=== PATIENT | male | born 1985 | race Caucasian/White ===

== ENCOUNTER 2016-12-17 16:42 | Emergency (ER) | payer MEDICAID ==
[~2016-12-17] VITALS: Ht 167.6 cm; Wt 109.0 kg
[~2016-12-17 16:42] MED LIST: Z.0.NO CURRENT MEDS
[2016-12-17 16:51] VITALS: BP 169/99; PULSE 107; RESP 18; TEMP 99; O2SAT 93
[2016-12-17] MEDS ORDERED: SODIUM CHLOR 0.9% 1000 ML INJ 1,000 ML IV ONE (17:15)
[2016-12-17] MEDS ORDERED: SODIUM CHLORIDE 0.9% FLUSH 10 ML FLUSH IV FLUSH PRN (17:15)
[2016-12-17 17:23] LABS: AUTOMATED NEUTROPHIL # 4.9 TH/MM3 (1.8-7.7); BASOPHIL % 0.5 % (0.0-2.0); EOSINOPHIL # 0.3 TH/MM3 (0-0.4); EOSINOPHIL % 4.7 % (0.0-4.0); HEMATOCRIT 47.9 % (39.0-51.0); HEMO FLAGS DIFF FINAL; LYMPH % 21.2 % (9.0-44.0); LYMPHOCYTE # 1.5 TH/MM3 (1.0-4.8); MEAN CELL VOLUME 83.9 FL (80.0-100.0); MEAN CORPUSCULAR HEMOGLOBIN 29.1 PG (27.0-34.0); MEAN CORPUSCULAR HGB CONC 34.7 % (32.0-36.0); MONO % 7.1 % (0.0-8.0); NEUT % 66.5 % (16.0-70.0); PLATELET COUNT 227 TH/MM3 (150-450); RED BLOOD COUNT 5.71 MIL/MM3 (4.50-5.90); RED CELL DISTRIBUTION WIDTH 12.8 % (11.6-17.2); WHITE BLOOD COUNT 7.2 TH/MM3 (4.0-11.0)
--- NOTE | 2016-12-17 17:30 | RADRPT ---
EXAM DATE/TIME: 12/17/2016 17:19 [facility] COMPARISON: No previous studies available for comparison. INDICATIONS : Cough for 4 days. MEDICAL HISTORY : None. SURGICAL HISTORY : None. ENCOUNTER: Initial ACUITY: 4 - 6 days PAIN SCORE: 2/10 LOCATION: Bilateral lower chest FINDINGS: Portable AP view of the chest demonstrates a normal-sized cardiac silhouette. No effusion, consolidat ion, or pneumothorax is visualized. The bones and soft tissues demonstrate no acute abnormality. CONCLUSION: No acute cardiopulmonary abnormality is identified. Neil Pandya MD on December 17, 2016 at 17:28 Board Certified Radiologist. This report was verified electronically.
[2016-12-17 17:32] LABS: CHLORIDE 106 MEQ/L (98-107); POTASSIUM 3.8 MEQ/L (3.5-5.1); SODIUM (NA) 140 MEQ/L (136-145)
[2016-12-17 17:37] LABS: ANION GAP 6 MEQ/L (5-15); BICARBONATE 28.3 MEQ/L (21.0-32.0); BLOOD UREA NITROGEN 10 MG/DL (7-18)
--- NOTE | 2016-12-17 17:39 | PD ---
HPI Chief Complaint: Abdominal Pain Time Seen by Provider: 16:57 Travel History International Travel<30 days: No Contact w/Intl Traveler<30days: No Traveled to known affect area: No History of Present Illness HPI This is a 31-year-old male who presents to the emergency department with 4 days of productive cough with green sputum, fevers, chills, several episodes of vomiting and abdominal pain. He describes his abdominal pain is severe, worse in the right upper quadrant, worse with deep breaths and worse with coughing. He denies any diarrhea. He's never had pain like this before. He says he's had pneumonia twice in the past. His was recently diagnosed with strep pharyngitis and their children in the house that are sick. PFSH Past Medical History Diminished Hearing: No Respiratory: Yes (BRONCHITIS) Immunizations Current: Yes Pneumonia: Yes Tetanus Vaccination: < 5 Years Influenza Vaccination: No Past Surgical History Surgical History: No Previous Surgery Social History Alcohol Use: No Tobacco Use: Yes (1 PPD) Substance Use: No Allergies-Medications (Allergen,Severity, Reaction): Coded Allergies: No Known Allergies (Verified Adverse Reaction, Unknown, 12/17/16) Reported Meds & Prescriptions Reported Meds & Active Scripts Active No Active Prescriptions or Reported Medications Review of Systems Except as stated in HPI: all other systems reviewed are Neg Physical Exam Narrative GENERAL: Uncomfortable appearing. SKIN: Diaphoretic. HEAD: Atraumatic. Normocephalic. EYES: Pupils equal and round. No injection or drainage. ENT: Moist mucous membranes. No posterior pharyngeal erythema or exudates. NECK: Trachea midline. No tender lymphadenopathy. CARDIOVASCULAR: Regular rate and rhythm. No murmur appreciated. RESPIRATORY: Clear to auscultation. Breath sounds equal bilaterally. GASTROINTESTINAL: Abdomen soft, tender to palpation in the right upper quadrant and epigastrium with no rebound or guarding. MUSCULOSKELETAL: No obvious deformities. NEUROLOGICAL: Awake and alert. No obvious cranial nerve deficits. Moving all extremities. PSYCHIATRIC: Appropriate mood and affect; insight and judgment normal. Data Data Last Documented VS Vital Signs Date Time Temp Pulse Resp B/P (MAP) Pulse Ox O2 Delivery O2 Flow Rate FiO2 12/17/16 18:05 97.9 87 17 171/92 (118) 96 Room Air Orders Orders Complete Blood Count With Diff (12/17/16 17:07) Comprehensive Metabolic Panel (12/17/16 17:07) Lipase (12/17/16 17:07) Urinalysis - C+S If Indicated (12/17/16 17:07) Ct Abd/Pel W Iv Contrast(Rout) (12/17/16 17:07) Iv Access Insert/Monitor (12/17/16 17:07) Ecg Monitoring (12/17/16 17:07) Oximetry (12/17/16 17:07) Sodium Chloride 0.9% Flush (Ns Flush) (12/17/16 17:15) Chest, Single Ap (12/17/16 ) Sodium Chlor 0.9% 1000 Ml Inj (Ns 1000 M (12/17/16 17:15) Influenzae A/B Antigen (12/17/16 17:08) Methylprednisolone So Succ Inj (Solumedr (12/17/16 17:45) Albuterol-Ipratropium Neb (Duoneb Neb) (12/17/16 17:45) Iohexol 350 Inj (Omnipaque 350 Inj) (12/17/16 18:27) Labs Laboratory Tests Test 12/17/16 17:15 12/17/16 18:01 White Blood Count 7.2 TH/MM3 Red Blood Count 5.71 MIL/MM3 Hemoglobin 16.6 GM/DL Hematocrit 47.9 % Mean Corpuscular Volume 83.9 FL Mean Corpuscular Hemoglobin 29.1 PG Mean Corpuscular Hemoglobin Concent 34.7 % Red Cell Distribution Width 12.8 % Platelet Count 227 TH/MM3 Mean Platelet Volume 7.8 FL Neutrophils (%) (Auto) 66.5 % Lymphocytes (%) (Auto) 21.2 % Monocytes (%) (Auto) 7.1 % Eosinophils (%) (Auto) 4.7 % Basophils (%) (Auto) 0.5 % Neutrophils # (Auto) 4.9 TH/MM3 Lymphocytes # (Auto) 1.5 TH/MM3 Monocytes # (Auto) 0.5 TH/MM3 Eosinophils # (Auto) 0.3 TH/MM3 Basophils # (Auto) 0.0 TH/MM3 CBC Comment DIFF FINAL Differential Comment Blood Urea Nitrogen 10 MG/DL Creatinine 0.75 MG/DL Random Glucose 113 MG/DL Total Protein 7.6 GM/DL Albumin 3.7 GM/DL Calcium Level 8.8 MG/DL Alkaline Phosphatase 92 U/L Aspartate Amino Transf (AST/SGOT) 137 U/L Alanine Aminotransferase (ALT/SGPT) 382 U/L Total Bilirubin 0.5 MG/DL Sodium Level 140 MEQ/L Potassium Level 3.8 MEQ/L Chloride Level 106 MEQ/L Carbon Dioxide Level 28.3 MEQ/L Anion Gap 6 MEQ/L Estimat Glomerular Filtration Rate 122 ML/MIN Lipase 179 U/L Urine Color YELLOW Urine Turbidity CLEAR Urine pH 7.0 Urine Specific [place] 1.025 Urine Protein NEG mg/dL Urine Glucose (UA) NEG mg/dL Urine Ketones NEG mg/dL Urine Occult Blood NEG Urine Nitrite NEG Urine Bilirubin NEG Urine Leukocyte Esterase NEG Urine WBC 0-2 /hpf Urine Squamous Epithelial Cells 0-5 /hpf Microscopic Urinalysis Comment CULT NOT INDICATED MDM Medical Decision Making Medical Screen Exam Complete: Yes Emergency Medical Condition: Yes Interpretation(s) Afebrile, tachycardic, hypertensive No leukocytosis Mild transaminitis Urinalysis is negative for infection Chest x-ray: No acute process CT abdomen and pelvis: No explanation for pain. Splenomegaly and pulmonary nodules which I discussed with the patient. Differential Diagnosis Bronchitis, pneumonia, influenza, pleural effusion, cholelithiasis, cholecystitis, pancreatitis Narrative Course This is a 31-year-old male who presents to the emergency department having cough , shortness of breath and pleuritic abdominal pain. He is tachycardic on arrival and diaphoretic. His symptoms are consistent with a viral syndrome. He is reporting green sputum production. He was placed in a monitor and an IV was established. Labs are reassuring except for some mild transaminitis. CT abdomen and pelvis was obtained which demonstrates some incidental findings but nothing to explain his pain. I suspect this pain is pleuritic in the setting of an acute bronchitis. Patient will be discharged with albuterol, prednisone and antibiotics. Diagnosis Primary Impression: Acute bronchitis Qualified Codes: J20.9 - Acute bronchitis, unspecified Patient Instructions: General Instructions Additional Instructions: If you develop severe chest pain, shortness of breath, sweating, lightheadedness , dizziness or difficulty breathing return to the emergency department immediately. Followup with your primary care physician in 2-3 days if your symptoms are not resolved. Your provided a copy of your CT results. This should be followed by your primary care doctor. Med/Other Pt SpecificInfo: Prescription(s) given Scripts Azithromycin (Azithromycin) 250 Mg Tab 250 MG PO DIRECTED for Infection, #6 TAB 0 Refills Take 2 tabs (500 mg) on day 1 then 1 tab daily x 4 days. Prov: Ankita Stephenson MD 12/17/16 Prednisone (Prednisone) 20 Mg Tab 40 MG PO DAILY, #10 TAB 0 Refills Take 40 mg (2 tablets) daily for 5 days Prov: Ankita Stephenson MD 12/17/16 Albuterol 8.5 GM Inh (Proair Hfa 8.5 GM Inh) 90 Mcg/Act Aer 2 PUFF INH Q4-6H Y for SHORTNESS OF BREATH, #1 INHALER 0 Refills 108 mcg/actuation Prov: Ankita Stephenson MD 12/17/16 Disposition: 01 DISCHARGE HOME Condition: Stable Ankita Stephenson MD Dec 17, 2016 17:39
[2016-12-17 17:40] LABS: ALT (GPT) 382 U/L (12-78); AST (GOT) 137 U/L (15-37); GLOMERULAR FILTRATION RATE 122 ML/MIN (>89)
[2016-12-17 17:41] LABS: TOTAL BILIRUBIN ADULT 0.5 MG/DL (0.2-1.0)
[2016-12-17 17:43] LABS: ALKALINE PHOSPHATASE 92 U/L (45-117)
[2016-12-17] MEDS ORDERED: methylPREDNISolone SOD SUCC 125 MG/2 ML VIAL IV PUSH ONE (17:45)
[2016-12-17] MEDS ORDERED: RESP: ALBUTEROL 2.5 MG/IPRATROPIUM 0.5 MG NEB (SCH) NEB ONE (17:45)
[2016-12-17 18:05] VITALS: BP 171/92; PULSE 87; RESP 17; TEMP 97.9; O2SAT 96
[2016-12-17 18:12] LABS: BLOOD, URINE NEG (NEG); GLUCOSE,URINE NEG (NEG); KETONE, URINE NEG (NEG); NITRITE,URINE NEG (NEG)
[2016-12-17 18:19] LABS: URINE COLOR YELLOW (YELLW/STRAW)
[2016-12-17 18:20] LABS: COMMENT (UR) CULT NOT INDICATED; CULTURE IF INDICATED CULT NOT INDICATED; SQUAMOUS EPITHELIAL CELL URINE 0-5 /hpf (0-5); WBC, URINE 0-2 /hpf (0-5)
[2016-12-17] MEDS ORDERED: IOHEXOL 350 MG/ML 10 ML VIAL (for RAD DIAG) IVCONTRAST ONE (18:27)
--- NOTE | 2016-12-17 18:52 | RADRPT ---
EXAM DATE/TIME: 12/17/2016 18:21 [facility] COMPARISON: No previous studies available for comparison. INDICATIONS : Right lower quadrant pain. IV CONTRAST: 95 cc Omnipaque 350 (iohexol) IV ORAL CONTRAST: No oral contrast ingested. RADIATION DOSE: 21.38 CTDIvol (mGy) MEDICAL HISTORY : None SURGICAL HISTORY : None. ENCOUNTER: Initial ACUITY: 2 days PAIN SCALE: 6/10 LOCATION: Right lower quadrant TECHNIQUE: Volumetric scanning of the abdomen and pelvis was performed. Using automated exposure control and ad justment of the mA and/or kV according to patient size, radiation dose was kept as low as reasonably achievable to obtain optimal diagnostic quality images. DICOM format image data is available electro nically for review and comparison. FINDINGS: LOWER LUNGS: A total of 4 pulmonary nodules are observed within the visualized lung bases. These range in size fro m 3-5 mm. 2 are located on the right and 2 on the left. No acute infiltrate. LIVER: Homogeneously low in density without lesion. There is no dilation of the biliary tree. No calcified gallstones. SPLEEN: Splenomegaly. No lesion. Splenic vein is patent. PANCREAS: Within normal limits. KIDNEYS: Normal in size and shape. There is no mass or hydronephrosis. A 2 mm nonobstructing left renal stone . ADRENAL GLANDS: Within normal limits. VASCULAR: There is no aortic aneurysm. BOWEL/MESENTERY: The stomach, small bowel, and colon demonstrate no acute abnormality. There is no free intraperitone al air or fluid. The appendix is well-seen and normal by CT criteria. ABDOMINAL WALL: Within normal limits. RETROPERITONEUM: There is no lymphadenopathy. BLADDER: No wall thickening or mass. REPRODUCTIVE: Within normal limits. INGUINAL: There is no lymphadenopathy or hernia. MUSCULOSKELETAL: Within normal limits for patient age. CONCLUSION: 1. Splenomegaly. 2. A total of 4 pulmonary nodules involving the visualized lung bases. Current guidelines suggest a r epeat CT of the thorax in 6 months. 3. Hepatic steatosis. 4. 2 mm nonobstructing left renal stone. Jeff Milian Jr., MD on December 17, 2016 at 18:46 Board Certified Radiologist. This report was verified electronically.
[2016-12-17] MEDS ORDERED: AZIT250T3 PO (19:07)
[2016-12-17] MEDS ORDERED: ALBUAER3 INH (19:07)
[2016-12-17] MEDS ORDERED: PRED20 PO (19:07)
[2016-12-17 19:10] VITALS: BP 171/102; PULSE 88; RESP 17; O2SAT 94
[2016-12-17 19:55] VITALS: BP 177/103; PULSE 92; RESP 18; O2SAT 94
== END 2016-12-17 20:20 | disposition home or self-care (01) ==
LOC: PHED 16:42
DX: J20.9 Acute bronchitis, unspecified (principal); F17.200 Nicotine dependence, unspecified, uncomplicated
CPT/HCPCS: 71010; 74177; 80053; 81001; 83690; 85025; 87804; 94664; 96361; 96374; 99285; J2930; J7030; Q9967

== ENCOUNTER 2017-05-02 06:19 | Emergency (ER) | payer MEDICAID, OTHER ==
[~2017-05-02] VITALS: Ht 167.6 cm; Wt 111.0 kg
[~2017-05-02 06:19] MED LIST changes: +ALBUAER3 INH; +AZIT250T3 PO; +PRED20 PO; -Z.0.NO CURRENT MEDS
[2017-05-02 06:25] VITALS: BP 150/90; PULSE 90; RESP 16; TEMP 97.6; O2SAT 98
[2017-05-02] MEDS ORDERED: IBUPROFEN 800 MG TAB PO ONE (06:45)
[2017-05-02] MEDS ORDERED: CIPROFLOXACIN 500 MG TAB PO ONE (06:45)
[2017-05-02] MEDS ORDERED: TRAM50TA PO (06:48)
[2017-05-02] MEDS ORDERED: IBUP1TAB7 PO (06:48)
[2017-05-02] MEDS ORDERED: CIPR-9 PO (06:48)
--- NOTE | 2017-05-02 06:52 | PD ---
HPI Chief Complaint: Skin Problem Time Seen by Provider: 06:43 Travel History International Travel<30 days: No Contact w/Intl Traveler<30days: No Traveled to known affect area: No History of Present Illness HPI 31-year-old male presents to the emergency department for complaint of left foot pain plantar surface after stepping on a wooden board with nails. Patient states sustained 2 puncture wounds to the bottom of his left foot. Patient states he was wearing shoes at the time. Patient's tetanus status was 3 years ago. Patient is not diabetic. Patient denies other injury. Patient states injury occurred approximately 9 PM on evening. Patient states he did not take any medications. Patient reports pain associated with your cannot weight-bear on the foot. Patient denies other injury. PFSH Past Medical History Narrative Medical Bronchitis pneumonia tobacco use nursing notes for Diminished Hearing: No Respiratory: Yes (BRONCHITIS) Immunizations Current: Yes Pneumonia: Yes Tetanus Vaccination: < 5 Years ?: Not Social History Alcohol Use: No Tobacco Use: Yes Substance Use: No Allergies-Medications (Allergen,Severity, Reaction): Coded Allergies: No Known Allergies (Verified Adverse Reaction, Unknown, 12/17/16) Reported Meds & Prescriptions Reported Meds & Active Scripts Active Ibuprofen 800 Mg Tab 800 Mg PO Q8H PRN Tramadol (Tramadol HCl) 50 Mg Tab 50 Mg PO Q6H PRN Cipro (Ciprofloxacin HCl) 500 Mg Tab 500 Mg PO BID Azithromycin 250 Mg Tab 250 Mg PO DIRECTED Take 2 tabs (500 mg) on day 1 then 1 tab daily x 4 days. Prednisone 20 Mg Tab 40 Mg PO DAILY Take 40 mg (2 tablets) daily for 5 days Proair Hfa 8.5 GM Inh (Albuterol Sulfate) 90 Mcg/Act Aer 2 Puff INH Q4-6H PRN 108 mcg/actuation Review of Systems Except as stated in HPI: all other systems reviewed are Neg General / Constitutional: No: Fever, Chills Skin: Positive Other (puncture wounds) Physical Exam Narrative GENERAL: Well-developed well-nourished male no acute distress or respiratory distress SKIN: Warm and dry. MUSCULOSKELETAL: No cyanosis, or edema. Attention left foot plantar surface 2 puncture wounds with no visible foreign body positive ecchymosis tenderness to palpation no purulent drainage distally foot is neurovascular tendon intact with brisk capillary refill less than 2 seconds per digit. Dorsalis pedis pulse 2+ to palpation. Data Data Last Documented VS Vital Signs Date Time Temp Pulse Resp B/P (MAP) Pulse Ox O2 Delivery O2 Flow Rate FiO2 05/02/17 06:25 97.6 90 16 150/90 (110) 98 Orders Orders Foot, Complete ([id number]) (05/02/17 ) Ibuprofen (Motrin) (05/02/17 06:45) Wound Care (05/02/17 06:40) Ciprofloxacin (Cipro) (05/02/17 06:45) Crutches (05/02/17 06:40) MDM Medical Decision Making Medical Screen Exam Complete: Yes Emergency Medical Condition: Yes Medical Record Reviewed: Yes Interpretation(s) left foot xr: No radiopaque foreign body identified no subcutaneous gas and no bony abnormalities noted Differential Diagnosis Puncture wound, retained foreign body, fracture, neurovascular tendon injury, osteomyelitis; no findings for compartment syndrome or necrotizing fasciitis Narrative Course Patient's tetanus status is current wound site cleansed and soaked with Betadine and saline Polysporin dressing applied imaging study performed to evaluate for foreign body and patient administered first dose of oral antibiotic along with ibuprofen. X-ray of the left foot reveals no obvious radiopaque foreign body, subcutaneous gas or bony abnormality. Diagnosis Primary Impression: Puncture wound of foot, left Qualified Codes: S91.332A - Puncture wound without foreign body, left foot, initial encounter Referrals: [facility] call for appointment Patient Instructions: General Instructions Departure Forms: Tests/Procedures, Work Release Special Instructions: no work x 1 day Additional Instructions: Elevate foot Follow-up with podiatry call office in 8 this a.m. to schedule follow-up appointment Take antibiotic as prescribed Monitor temperature every 4 hours with thermometer take acetaminophen/Tylenol as needed for fever 100.4F or greater Use crutches to assist with weightbearing Return to the emergency department for pain fever or any concerns such as redness or ascending redness No work 1 day Med/Other Pt SpecificInfo: Prescription(s) given Scripts Ibuprofen (Ibuprofen) 800 Mg Tab 800 MG PO Q8H Y for Pain/Inflammation, #10 TAB 0 Refills Prov: Anne-Marie Brennan MD 05/02/17 Tramadol (Tramadol) 50 Mg Tab 50 MG PO Q6H Y for PAIN, #7 TAB 0 Refills Prov: Anne-Marie Brennan MD 05/02/17 Ciprofloxacin (Cipro) 500 Mg Tab 500 MG PO BID for Infection, #14 TAB 0 Refills Prov: Anne-Marie Brennan MD 05/02/17 Anne-Marie Brennan MD May 02, 2017 06:52
--- NOTE | 2017-05-02 07:33 | RADRPT ---
EXAM DATE/TIME: 05/02/2017 06:48 [facility] COMPARISON: No previous studies available for comparison. INDICATIONS : Foreign body, patient stepped on 2 nails last night and then pulled them out of left foot. MEDICAL HISTORY : None. SURGICAL HISTORY : None. ENCOUNTER: Initial ACUITY: 2 days PAIN SCORE: 10/10 LOCATION: Left foot FINDINGS: Three view examination of the left foot demonstrates no soft tissue swelling, dislocation, or fractur e. No radiopaque foreign body is noted. The tarsal bones appear intact. The interphalangeal and me tatarsophalangeal joints are intact. The calcaneus is intact. Bony mineralization is normal. CONCLUSION: No acute disease. No radiopaque foreign body identified. Rajendra Viera MD on May 02, 2017 at 7:31 Board Certified Radiologist. This report was verified electronically.
[2017-05-02 08:00] VITALS: RESP 16
[2017-05-02 08:06] VITALS: BP 146/86
== END 2017-05-02 08:39 | disposition home or self-care (01) ==
LOC: PHED 06:19
DX: S91.332A Puncture wound without foreign body, left foot, initial encounter (principal); Z87.09 Personal history of other diseases of the respiratory system; Z72.0 Tobacco use; W45.0XXA Nail entering through skin, initial encounter
CPT/HCPCS: 73630; 99283; E0113